=== PATIENT | male | born 1995 | race African-American/Black ===

== ENCOUNTER 2018-04-30 17:16 | Emergency (ER) | payer SELFPAY ==
[2018-04-30 17:23] VITALS: BP 152/85
[2018-04-30] MEDS ORDERED: HYDROCODONE/ACETAMINOPHEN 5-325 MG TABLET PO ONE (17:33)
[2018-04-30] MEDS ORDERED: SULFAMETHOXAZOLE/TRIMETHOPRIM 800-160 MG TABLET PO ONE (17:33)
[2018-04-30] MEDS ORDERED: CEPHALEXIN 500 MG CAPSULE PO ONE (17:33)
--- NOTE | 2018-04-30 17:34 | ER Document Report ---
HPI - HPI Patient complains to provider of: abscess Onset: Last week Onset/Duration: Worse Quality of pain: Achy Pain Level: 4 Context: Patient complains of multiple abscesses to left axilla for the past week. Patient states that he has been attempting to squeeze the lesions. Patient denies any history of MRSA. Patient denies history of diabetes or fever. Associated Symptoms: Other - Axilla abscess Exacerbated by: Movement Relieved by: Denies Similar symptoms previously: No Recently seen / treated by doctor: No - ROS ROS below otherwise negative: Yes Systems Reviewed and Negative: Yes All other systems reviewed and negative - CONSTITUTIONAL Constitutional: DENIES: Fever - REPRODUCTIVE Reproductive: DENIES: : - MUSCULOSKELETAL Musculoskeletal: REPORTS: Extremity pain - DERM Skin Color: Erythema Notes: Abscess Past Medical History - General Information source: Patient - Social History Smoking Status: Never Smoker Frequency of alcohol use: Occasional Drug Abuse: None Occupation: Construction Family History: Arthritis, DM, Hypertension Musculoskeletal Medical History: Reports Hx Musculoskeletal Trauma Traumatic Medical History: Reports: Hx Fractures Surgical Hx: Negative - Immunizations Hx Diphtheria, Pertussis, Tetanus Vaccination: Yes Vertical Provider Document - CONSTITUTIONAL Agree With Documented VS: Yes Exam Limitations: No Limitations General Appearance: WD/WN, No Apparent Distress - INFECTION CONTROL TRAVEL OUTSIDE OF THE [place] IN LAST 30 DAYS: No - HEENT HEENT: Atraumatic, Normocephalic - NECK Neck: Normal Inspection - RESPIRATORY Respiratory: Breath Sounds Normal, No Respiratory Distress - CARDIOVASCULAR Cardiovascular: Regular Rate, Regular Rhythm - MUSCULOSKELETAL/EXTREMETIES Musculoskeletal/Extremeties: MAEW - NEURO Level of Consciousness: Awake, Alert, Appropriate Motor/Sensory: No Motor Deficit - DERM Integumentary: Warm, Dry, Abscess - Multiple small abscesses to left axilla, abscess varying in size from 0.5 cm to 2 center diameter Course - Vital Signs Vital signs: Temp Pulse Resp BP Pulse Ox 98.7 F 75 18 152/85 H 97 04/30/18 17:22 04/30/18 17:22 04/30/18 17:22 04/30/18 17:22 04/30/18 17:22 Procedures - Incision and Drainage Left Arm Type: Simple Anesthetic type: 1% Lidocaine Blade size: 11 I&D procedure: Other - surgical scrub Incision Method: Incision made by scalpel Amount/type of drainage: small amount of purulent drainage Discharge - Discharge Clinical Impression: Abscess, Encounter for incision and drainage procedure Condition: Stable Disposition: HOME, SELF-CARE Additional Instructions: Return immediately for any new or worsening symptoms Followup with your primary care provider, call tomorrow to make a followup appointment Prescriptions: Cephalexin Monohydrate [Keflex 500 mg Capsule] 500 mg PO Q6H 5 Days capsule Naproxen [Naprosyn 250 Nmg Tablet] 1 tab PO BID #14 tablet Sulfamethoxazole/Trimethoprim [Bactrim Ds Tablet] 1 each PO BID #20 tablet Forms: Return to Work Referrals: [facility] [Provider Group] - Follow up as needed [facility] [Provider Group] - Follow up as needed
== END 2018-04-30 19:01 | disposition home or self-care (01) ==
LOC: ER 17:16
DX: L02.414 Cutaneous abscess of left upper limb (principal)
CPT/HCPCS: 99283